=== PATIENT | female | born 2005 | race Caucasian/White ===

== ENCOUNTER 2025-02-17 15:53 | Outpatient (CLI) | payer MEDICAID, SELFPAY ==
--- NOTE | 2025-02-17 16:13 | US_ITS ---
WS: [id number] US pelv w/transvag [id number] HISTORY: IRREGULAR MENSES COMPARISON: None available. Uterus: 7.4 cm x 3.6 cm x 3.3 cm. Normal size anteverted uterus. No fibroid or mass. Endometrium: 0.4 cm. Normal. Normal size. No increased vascularity or mass. Right ovary: 3.9 cm x 3.2 cm x 3.1 cm. RIGHT ovary is measuring slightly enlarged. There are multiple small follicles present. These follicles are within the periphery and central ovary. Normal vascularity. Largest follicle 6 mm. Left ovary: 3.4 cm x 2.3 cm x 2.9 cm. Ovary is top normal size with multiple peripheral follicles. Additional smaller central follicles. Largest follicle 6 mm. No free fluid in the cul-de-sac. US/US pelv w/transvag [id number] IMPRESSION: 1. Normal uterus and endometrium. 2. Ovaries are measuring slightly enlarged. There are numerous follicles withi n each ovary. Consider polycystic ovarian syndrome.
== END 2025-02-17 15:54 | disposition home or self-care (01) ==
LOC: RAD 15:55
PROVIDERS: Family Provider Nurse Practitioner; PCP Nurse Practitioner Family; Visit Provider Nurse Practitioner Family
DX: N92.6 Irregular menstruation, unspecified (principal); R93.89 Abnormal findings on diagnostic imaging of other specified body structures
CPT/HCPCS: 76830; 76856